=== PATIENT | female | born 1990 | race Caucasian/White ===

== ENCOUNTER 2023-08-22 06:05 | Inpatient (IN) | payer OTHER ==
[2023-08-22] MEDS: ELECTROLYTE-148 SOLN 500 ML IV ONE ×2 (06:53→13:11)
[2023-08-22] MEDS: ELECTROLYTE-148 SOLN 1,000 ML IV SCH ×2 (07:00→08:30)
[2023-08-22 07:06] VITALS: BMI 26.0
[2023-08-22] MEDS: CITRIC ACID/SODIUM CITRATE 30 ML UNIT-DOSE CUP PO ONE (07:30)
[2023-08-22] MEDS ORDERED: morphine SULFATE/PF 1 MG/2 ML (2cc Syringe - QUVA) ONE (09:09)
[2023-08-22] MEDS: OXYTOCIN 20 UNITS in 0.9% NS 20 UNIT/1,000 ML INFUS.BAG IV SCH (09:39)
[2023-08-22] MEDS ORDERED: FENTANYL CITRATE/PF 50 MCG/ML VIAL ONE ×2 (09:46→09:49)
[2023-08-22] MEDS ORDERED: ONDANSETRON 4 MG/2 ML VIAL IVPB PRN (10:13)
[2023-08-22] MEDS ORDERED: oxyCODONE HCL 5 MG TABLET PO PRN (10:13)
[2023-08-22] MEDS ORDERED: IBUPROFEN 800 MG/8 ML IJ IVPB PRN (10:13)
[2023-08-22] MEDS: IBUPROFEN 600 MG TABLET (FP) PO SCH (10:15)
[2023-08-22] MEDS: ACETAMINOPHEN 325 MG TABLET (FP) PO SCH (10:15)
[2023-08-22] MEDS ORDERED: IBUPROFEN 800 MG/8 ML IJ IVPB ONE (12:05)
[2023-08-22] MEDS: ACETAMINOPHEN 1000 MG/100 ML BAG IVPB PRN (12:13)
[2023-08-22] MEDS ORDERED: OXYTOCIN 20 UNITS in 0.9% NS 20 UNIT/1,000 ML INFUS.BAG IV ONE (12:35)
[2023-08-22] MEDS: SENNOSIDES/DOCUSATE COMBO (SENNA PLUS) TABLET (UD) PO SCH (21:58)
[2023-08-23 07:25] LABS: BASO % 0.1 % (0-2.0); EOS % 0.8 % (0-4.5); HEMATOCRIT 37.6 % (32.4-45.2); HEMOGLOBIN 12.5 GM/dL (10.7-15.3); LYMPH % 10.2 % (8-40); MCH 31.8 pg (25.7-33.7); MCHC 33.4 g/dl (32.0-36.0); MEAN CELL VOLUME 95.5 fl (80-96); MEAN PLT VOLUME 6.9 fl (7.5-11.1); MONO % 5.5 % (3.8-10.2); NEUT % 83.4 % (42.8-82.8); PLATELET COUNT 219 10^3/uL (134-434); RBC 3.93 M/mm3 (3.60-5.2); RDW 13.1 % (11.6-15.6); WHITE BLOOD COUNT 11.7 K/mm3 (4.0-10.0)
[2023-08-23 08:25] VITALS: RESP 18
[2023-08-23] MEDS: SIMETHICONE 80 MG TAB.CHEW (FP) PO PRN (09:01)
[2023-08-23] MEDS ORDERED: BISACODYL 10 MG SUPP.RECT RC PRN (10:13)
[2023-08-24 22:14] VITALS: TEMP 98.3
[2023-08-25 09:48] VITALS: BP 93/61; PULSE 81
== END 2023-08-25 11:50 | disposition home or self-care (01) | DRG 540 ==
LOC: JLDR 06:05 → J3W 12:58
PROVIDERS: ADMIT Specialist; ATTEND Specialist
PROC: 10D00Z1 Extraction of Products of Conception, Low, Open Approach (ICD-10-PCS; principal; 2023-08-22)
DX: O34.211 Maternal care for low transverse scar from previous cesarean delivery (principal); N85.8 Other specified noninflammatory disorders of uterus; Z3A.39 39 weeks gestation of pregnancy; Z37.0 Single live birth
CPT/HCPCS: 36415; 59409; 80053; 85025; 85027; 85610; 85730; 86780; 86803; 86850; 86900; 86901; 87389; 88307-TC; J0131